=== PATIENT | male | born 1955 | race Caucasian/White ===

== ENCOUNTER 2018-07-01 05:56 | Day surgery (SDC) | payer OTHER ==
[2018-07-01] MEDS ORDERED: Midazolam 1 MG/ML 2 ML SDV IV ONE (05:57)
[2018-07-01] MEDS ORDERED: fentaNYL 100 MCG/2 ML SDV IV ONE (05:57)
[2018-07-01] MEDS ORDERED: Sodium Chloride 0.9% 10 ML Syringe FLUSH PRN (06:00)
[2018-07-01] MEDS ORDERED: Midazolam 1 MG/ML 2 ML SDV ONE (06:15)
[2018-07-01] MEDS ORDERED: fentaNYL 100 MCG/2 ML SDV ONE (06:15)
[2018-07-01] MEDS: Dextrose 5%-0.45% NaCl 1,000 ML IV SCH (06:23)
[2018-07-01] MEDS: fentaNYL 100 MCG/2 ML SDV IV ONE ×2 (07:01→07:02)
[2018-07-01] MEDS: Midazolam 1 MG/ML 2 ML SDV IV ONE ×6 (07:03→07:10)
--- NOTE | 2018-07-01 07:43 | OR ---
DATE: 07/01/2018 PROCEDURE PERFORMED: Total colonoscopy. INSTRUMENT USED: CF-H180AL Olympus video colonoscope. PREMEDICATIONS: Fentanyl 100 mcg intravenous, Versed 4 mg intravenous. Nasal O2 cannula. The procedure was done under pulse oximetry, BP recording, and track leader. INDICATION: Screening colonoscopic examination is done for detection of any polypoid lesions and removal, endoscopic hemostasis therapy if needed. DESCRIPTION OF PROCEDURE: Initial rectal exam was unremarkable. Rigid anoscopy was normal. The colonoscope was passed with ease. Numerous scattered diverticula were noted in the colon more so in the distal left colon along with some deformity. The scope was passed with ease up to the ileocecal area. Photographs were taken if the normal-appearing cecum identified by landmarks of appendiceal orifice and double-bulged ileocecal folds. No bleeding was noted from any of the visualized areas at the commencement of the examination. No stricture. No vascular ectasia. No large or isolated ulcerations seen. No evidence of diffuse inflammatory bowel disease in the form of friability, contact bleeding, or ulcerations. No polyp or tumor mass identified. Probing the proximal sides of folds and flexures, using adequate distention and clearing up the stool material, withdrawal of the scope was made, cecum to rectum time over 6 minutes. No bleeding was noted from any of the visualized areas at the completion of examination. The bowel preparation was found to be adequate. IMPRESSION: Diverticulosis. The patient tolerated the procedure well. [facility] /[id number]
--- NOTE | 2018-07-01 09:01 | LETTER ---
07/01/2018 Krissy Dumont, [address] [place] [id number] RE: BANDAR GONZALEZ : 1955 Dear Ms. Dumont: Mr. Bandar Gonzalez had colonoscopic examination done this morning and he tolerated the procedure well. I herewith send a copy of the endoscopy note and photographs for your review. Thank you. Sincerely, [facility] /[id number]
== END 2018-07-01 09:25 | disposition home or self-care (01) ==
LOC: DL.ENDO 05:56
PROVIDERS: ATTEND Internal Medicine Gastroenterology
DX: Z12.11 Encounter for screening for malignant neoplasm of colon (principal); K57.30 Diverticulosis of large intestine without perforation or abscess without bleeding; M19.90 Unspecified osteoarthritis, unspecified site; E78.00 Pure hypercholesterolemia, unspecified; E66.09 Other obesity due to excess calories; Z68.30 Body mass index [BMI] 30.0-30.9, adult; Z80.0 Family history of malignant neoplasm of digestive organs
CPT/HCPCS: 45378; J2250; J3010; J7042